=== PATIENT | female | born 1950 | race Two or more races ===

== ENCOUNTER 2017-02-19 05:50 | Inpatient (IN) | payer MEDICARE, MEDICAID ==
[2017-02-19 06:26] VITALS: BP 136/68
[2017-02-19 09:00] LABS: HEMATOCRIT 36.6 % (35.0-45.0); HEMOGLOBIN 12.3 gm/dL (11.7-16.1); MEAN CELL VOLUME 80.6 fl (81-100); MEAN CORPUSCULAR HEMOGLOBIN 27.1 pg (27.0-31.0); MEAN CORPUSCULAR HGB CONC 33.6 pg (28.0-36.0); MEAN PLATELET VOLUME 9.3 fl; PLATELET COUNT 261 Th/cmm (150-400); RED BLOOD COUNT 4.54 Mil/cmm (3.80-5.20); RED CELL DISTRIBUTION WIDTH 13.9 % (11.5-20.0); WHITE BLOOD COUNT 6.8 Th/cmm (4.8-10.8)
[2017-02-19] MEDS ORDERED: D5-0.9%NS 1,000 ML IV SCH (09:00)
[2017-02-19 09:25] LABS: ALKALINE PHOSPHATASE 68 U/L (34-104); ANION GAP 10.3 (7.0-16.0); BILIRUBIN,TOTAL 0.3 mg/dL (0.3-1.0); BUN - UREA NITROGEN 13 mg/dL (7-25); BUN/CREATININE RATIO 18.6; CALCIUM SERUM 8.7 mg/dL (8.6-10.3); CARBON DIOXIDE 22.9 mEq/L (21.0-31.0); CHLORIDE 106 mEq/L (98-107); CREATININE - SERUM 0.7 mg/dL (0.6-1.2); GLUCOSE 316 mg/dL (70-105); POTASSIUM SERUM 3.2 mEq/L (3.5-5.1); SGOT 14 U/L (13-39); SGPT/ALT 12 U/L (7-52); SODIUM SERUM 136 mEq/L (136-145)
[2017-02-19 09:34] LABS: BAND NEUTROPHILE 5 % (0-10); NEUTROPHILS 91 % (40-80); PLATELET ESTIMATE ADEQUATE (NORMAL); PLATELET MORPHOLOGY NORMAL (NORMAL); TOTAL CELLS COUNTED 100
[2017-02-19] MEDS ORDERED: Albuterol Nebulizer 2.5mg/3mL HHN ONE (10:02)
[2017-02-19] MEDS ORDERED: Ipratropium Neb 0.5 mg/2.5 mL UD HHN ONE (10:03)
[2017-02-19] MEDS: Albuterol Nebulizer 2.5mg/3mL HHN SCH ×3 (10:06→19:28)
[2017-02-19] MEDS: Ipratropium Neb 0.5 mg/2.5 mL UD HHN SCH ×3 (10:06→19:28)
--- NOTE | 2017-02-19 11:20 | Diagnostic Imaging Report ---
History: Chest pain Findings: Heart size is enlarged. No infiltrates or effusions. No destructive lesions of bone. Impression: Cardiomegaly.
[2017-02-19] MEDS: guaiFENesin 200 MG/10 ML UDC PO PRN (16:41)
[2017-02-19] MEDS ORDERED: Potassium Chloride 20 mEq ER Tab PO ONE (17:00)
--- NOTE | 2017-02-19 17:00 | Internal Medicine Prog Note ---
Internal Medicine Subjective - Subjective Service Date: 02/19/17 ([facility] [id number]) Internal Medicine Objective - Results Result Diagrams: 02/19/17 07:08 02/19/17 07:08 Recent Labs: Laboratory Last Values WBC 6.8 Th/cmm (4.8-10.8) 02/19/17 07:08 RBC 4.54 Mil/cmm (3.80-5.20) 02/19/17 07:08 Hgb 12.3 gm/dL (11.7-16.1) 02/19/17 07:08 Hct 36.6 % (35.0-45.0) 02/19/17 07:08 MCV 80.6 fl (81-100) L 02/19/17 07:08 MCH 27.1 pg (27.0-31.0) 02/19/17 07:08 MCHC Differential 33.6 pg (28.0-36.0) 02/19/17 07:08 RDW 13.9 % (11.5-20.0) 02/19/17 07:08 Plt Count 261 Th/cmm (150-400) 02/19/17 07:08 MPV 9.3 fl 02/19/17 07:08 Band Neutrophils % 5 % (0-10) 02/19/17 07:08 Neutrophils (Manual) 91 % (40-80) H 02/19/17 07:08 Lymphocytes 4 % (20-50) L 02/19/17 07:08 Platelet Estimate ADEQUATE (NORMAL) 02/19/17 07:08 Platelet Morphology NORMAL (NORMAL) 02/19/17 07:08 RBC Morph Micro Appear NORMAL (NORMAL) 02/19/17 07:08 Sodium 136 mEq/L (136-145) 02/19/17 07:08 Potassium 3.2 mEq/L (3.5-5.1) L 02/19/17 07:08 Chloride 106 mEq/L (98-107) 02/19/17 07:08 Carbon Dioxide 22.9 mEq/L (21.0-31.0) 02/19/17 07:08 Anion Gap 10.3 (7.0-16.0) 02/19/17 07:08 BUN 13 mg/dL (7-25) 02/19/17 07:08 Creatinine 0.7 mg/dL (0.6-1.2) 02/19/17 07:08 Est GFR ( Amer) > 60.0 ml/min (>90) 02/19/17 07:08 Est GFR (Non-Af Amer) > 60.0 ml/min 02/19/17 07:08 BUN/Creatinine Ratio 18.6 02/19/17 07:08 Glucose 316 mg/dL (70-105) H 02/19/17 07:08 Hemoglobin A1c % 6.7 % (4.0-6.0) H 02/19/17 07:08 Calcium 8.7 mg/dL (8.6-10.3) 02/19/17 07:08 Total Bilirubin 0.3 mg/dL (0.3-1.0) 02/19/17 07:08 AST 14 U/L (13-39) 02/19/17 07:08 ALT 12 U/L (7-52) 02/19/17 07:08 Alkaline Phosphatase 68 U/L (34-104) 02/19/17 07:08 B-Natriuretic Peptide 13.7 pg/mL (5.0-100.0) 02/19/17 07:08 Total Protein 7.7 gm/dL (6.0-8.3) 02/19/17 07:08 Albumin 3.8 gm/dL (3.7-5.3) 02/19/17 07:08 Globulin 3.9 gm/dL 02/19/17 07:08 Albumin/Globulin Ratio 1.0 (1.0-1.8) 02/19/17 07:08 TSH 0.47 uIU/ml (0.34-5.60) 02/19/17 07:08 - Physical Exam Vitals and I&O: Vital Signs Temp 98.4 F 02/19/17 16:00 Pulse 102 02/19/17 16:00 Resp 18 02/19/17 16:00 BP 144/87 02/19/17 16:00 Pulse Ox 95 02/19/17 16:00 Intake & Output 02/18/17 02/19/17 02/19/17 18:59 06:59 18:59 Weight (lbs) 240 lb Other: Stool Characteristics Formed Active Medications: Current Medications Acetaminophen (Tylenol) 650 mg PO Q4H PRN PRN Reason: Pain or Fever >101 Stop: 04/20/17 08:49 Last Admin: 02/19/17 16:40 Dose: 650 mg Albuterol Sulfate (Albuterol 2.5mg/3ml Neb Ud) 2.5 mg HHN QIDRT [facility] Stop: 04/20/17 10:59 Last Admin: 02/19/17 14:09 Dose: 2.5 mg Guaifenesin (Robitussin) 200 mg PO Q4H PRN PRN Reason: Cough or Congestion Stop: 04/20/17 08:49 Last Admin: 02/19/17 16:41 Dose: 200 mg Heparin Sodium (Porcine) (Heparin) 5,000 units SUBQ Q12HR [facility] Stop: 04/20/17 08:59 Last Admin: 02/19/17 10:08 Dose: Not Given Cefepime HCl 1 gm/ Dextrose 50 mls @ 100 mls/hr IV Q12HR [facility] Stop: 04/20/17 08:59 Last Admin: 02/19/17 10:06 Dose: 100 mls/hr Dextrose/Sodium Chloride (D5-0.9%Ns) 1,000 mls @ 75 mls/hr IV .[id number] [facility] Stop: 04/20/17 08:59 Last Admin: 02/19/17 10:07 Dose: 75 mls/hr Ipratropium [place] (Atrovent Neb 0.5mg/2.5ml) 0.5 mg N QIDRT [facility] Stop: 04/20/17 10:59 Last Admin: 02/19/17 14:10 Dose: 0.5 mg Lorazepam (Ativan) 0.5 mg PO Q6HR PRN; Protocol PRN Reason: Anxiety Stop: 04/20/17 16:51 Methylprednisolone Sodium Succinate (Solu-Medrol) 80 mg IVP Q8HR [facility] Stop: 04/20/17 12:59 Last Admin: 02/19/17 14:04 Dose: 80 mg Ondansetron HCl (Zofran) 4 mg IV Q8H PRN PRN Reason: Nausea / Vomiting Stop: 04/20/17 08:49 Zolpidem Tartrate (Ambien) 10 mg PO HS PRN PRN Reason: Insomnia Stop: 04/20/17 20:59 Internal Medicine Assmt/Plan - Assessment Assessment: Acute asthma Respiratory Exacerbation ACUTE BRONCHITIS HYPOKALEMIA HTN DM-2 ANXIETY
--- NOTE | 2017-02-19 19:23 | History & Physical ---
CHIEF COMPLAINT: Shortness of breath. HISTORY OF PRESENT ILLNESS: This is a 66-year-old female who has a 1-week history of shortness of breath associated with productive cough. The patient denies any fevers or any chills. The patient is a direct admission from [facility]. For continuation of care the patient is now here at [facility]. PAST MEDICAL HISTORY: Hypertension, type 2 diabetes and anxiety. PAST SURGICAL HISTORY: Cholecystectomy in 1988 and total hysterectomy in 1994. ALLERGIES: No known drug allergies. FAMILY HISTORY: Noncontributory. SOCIAL HISTORY: Denies any smoking, drinking or any illicit drug usage. REVIEW OF SYSTEMS: GENERAL: Denies any fevers, any chills. CARDIOVASCULAR: Denies any chest pain. RESPIRATORY: Denies any shortness of breath, but has a productive cough with a thick whitish phlegm. GASTROINTESTINAL: Denies any nausea, vomiting or abdominal pain. GENITOURINARY: Denies any dysuria. All other systems are reviewed by me and are negative. PHYSICAL EXAMINATION: GENERAL: The patient is awake and alert in no apparent distress. VITAL SIGNS: Temperature 98.4, heart rate 102, blood pressure 144/87, respirations 18 and O2 of 95%. HEENT: Head: Normocephalic and atraumatic. NECK: Supple. No mass. LUNGS: Rhonchi bilaterally. HEART: Regular rhythm. ABDOMEN: Soft, nontender and nondistended. LABORATORY RESULTS: WBC 6.8, H and H 12.3 and 36.6 and platelets of 261. Sodium 136, potassium 3.2, chloride 106, BUN 13 and creatinine 0.7. DIAGNOSTICS: The patient had a chest x-ray done and the impression is no active cardiopulmonary disease. ASSESSMENT: 1. Acute asthma exacerbation. 2. Acute bronchitis. 3. Hypokalemia. 4. Hypertension. 5. Type 2 diabetes. 6. Obesity. 7. Anxiety. PLAN: The patient to be admitted to the med/surg unit. The patient will be kept on albuterol and Atrovent for breathing treatments, also Solu-Medrol 80 mg IV push q. 8 hours. The patient will be kept on IV fluids for hydration. We will replace the patient's potassium level. We will monitor the patient's electrolyte levels. The patient will be kept on IV antibiotics of Maxipime 1 gram IV q. 12 hours. We will continue to monitor the patient. JOB# [id number]
--- NOTE | 2017-02-19 22:18 | Admit Criteria Form ---
Admit Criteria Forms - Admit Criteria Diagnosis: ASTHMA Clinical Indications for Admission to Inpatient Care (Place 'X' for any and all applicable criteria): Admission is indicated for ANY ONE of the following (1)(2)(3)(4)(5): [ ]I. Absent or markedly diminished breath sounds (silent chest) [ ]II. Oxygen saturation < 92% [ ]III. PaCO2 = / > 42 mm Hg (5.6 kPa) [ ]IV. Peak expiratory flow rate < 40% of predicted or personal best after treatment. [ ]V. Peak expiratory flow rate < 33% of predicted or personal before after treatment [ ]. Change in mental status [ ]VII. Ventilatory support required [ ]VIII. PaO2 < 60 mm Hg (8.0 kPa) [ ]IX. Cyanosis [ ]X. Cardiac dysrhythmia (e.g., bradycardia) [ ]XI. Hemodynamic instability [ ]XII. Radiographic evidence of complication requiring inpatient treatment (e.g., pneumonia, pneumothorax) [X]XIII. Inpatient admission required rather than observation care (also use Asthma: Observation Care guideline as appropriate) because of ANY ONE of the following: [X]a) Respiratory finding that is severe or persistent (eg, dyspnea, tachypnea, accessory muscle use) [ ]b) Airflow measurements less than 60% of predicted or personal best that persist (e.g., over 24 hours) or worsen despite treatments [ ]c) Supplemental oxygen or respiratory treatments for over 24 hours that are performable only in acute inpatient setting [ ]d) Other condition, treatment or monitoring requiring inpatient admission. Extended stay beyond goal length of stay may be needed for (26)(27)(28): [ ]a) Severe respiratory failure (23) (29) (30) [ ]b) Secondary causes and complications (25) [ ]c) Status asthmaticus [ ]d) Chronic obstructive asthma [ ]e) Older patients (29) [ ]f) Slow resolution [ ]g) Clinically significant exacerbation of comorbidities (eg, radha. heart failure, atrial fibrillation) The original [email or web address] content created by [email or web address] [email or web address] [employer] has been revised. The portions of the content which have been revised are identified through the use of italic text or in bold, and [facility] has neither reviewed nor approved the modified material. All other unmodified content is copyright [facility] Please see references footnoted in the original [facility] edition 2016 Admit Criteria Met?: Yes
[2017-02-19] MEDS: INSULIN ASPART SLIDING SCALE 100 UNITS/ML UNIT SUBQ SCH (23:21)
[2017-02-20] MEDS: INSULIN ASPART SLIDING SCALE 100 UNITS/ML UNIT SUBQ SCH ×4 (06:57→20:56)
[2017-02-20] MEDS: Albuterol Nebulizer 2.5mg/3mL HHN SCH ×4 (07:06→18:56)
[2017-02-20] MEDS: Ipratropium Neb 0.5 mg/2.5 mL UD HHN SCH ×4 (07:07→18:56)
--- NOTE | 2017-02-20 08:13 | Diagnostic Imaging Report ---
Portable chest x-ray HISTORY: Cough The heart appears enlarged. Atherosclerotic calcification seen in the aortic arch. No acute focal pulmonary processes. IMPRESSION: 1. Cardiomegaly with atherosclerotic vascular changes 2. No acute focal pulmonary processes
--- NOTE | 2017-02-20 12:34 | Internal Medicine Prog Note ---
Internal Medicine Subjective - Subjective Service Date: 02/20/17 (awake, alert, anxious to go home, patient still noted with chest tightness, patient is very anxious ) Patient seen and examined:: with staff Patient is:: awake Internal Medicine Objective - Results Result Diagrams: 02/19/17 07:08 02/19/17 07:08 Recent Labs: Laboratory Last Values WBC 6.8 Th/cmm (4.8-10.8) 02/19/17 07:08 RBC 4.54 Mil/cmm (3.80-5.20) 02/19/17 07:08 Hgb 12.3 gm/dL (11.7-16.1) 02/19/17 07:08 Hct 36.6 % (35.0-45.0) 02/19/17 07:08 MCV 80.6 fl (81-100) L 02/19/17 07:08 MCH 27.1 pg (27.0-31.0) 02/19/17 07:08 MCHC Differential 33.6 pg (28.0-36.0) 02/19/17 07:08 RDW 13.9 % (11.5-20.0) 02/19/17 07:08 Plt Count 261 Th/cmm (150-400) 02/19/17 07:08 MPV 9.3 fl 02/19/17 07:08 Band Neutrophils % 5 % (0-10) 02/19/17 07:08 Neutrophils (Manual) 91 % (40-80) H 02/19/17 07:08 Lymphocytes 4 % (20-50) L 02/19/17 07:08 Platelet Estimate ADEQUATE (NORMAL) 02/19/17 07:08 Platelet Morphology NORMAL (NORMAL) 02/19/17 07:08 RBC Morph Micro Appear NORMAL (NORMAL) 02/19/17 07:08 Sodium 136 mEq/L (136-145) 02/19/17 07:08 Potassium 3.2 mEq/L (3.5-5.1) L 02/19/17 07:08 Chloride 106 mEq/L (98-107) 02/19/17 07:08 Carbon Dioxide 22.9 mEq/L (21.0-31.0) 02/19/17 07:08 Anion Gap 10.3 (7.0-16.0) 02/19/17 07:08 BUN 13 mg/dL (7-25) 02/19/17 07:08 Creatinine 0.7 mg/dL (0.6-1.2) 02/19/17 07:08 Est GFR ( Amer) > 60.0 ml/min (>90) 02/19/17 07:08 Est GFR (Non-Af Amer) > 60.0 ml/min 02/19/17 07:08 BUN/Creatinine Ratio 18.6 02/19/17 07:08 Glucose 316 mg/dL (70-105) H 02/19/17 07:08 POC Glucose 265 MG/DL (70 - 105) H 02/20/17 11:29 Hemoglobin A1c % 6.7 % (4.0-6.0) H 02/19/17 07:08 Calcium 8.7 mg/dL (8.6-10.3) 02/19/17 07:08 Total Bilirubin 0.3 mg/dL (0.3-1.0) 02/19/17 07:08 AST 14 U/L (13-39) 02/19/17 07:08 ALT 12 U/L (7-52) 02/19/17 07:08 Alkaline Phosphatase 68 U/L (34-104) 02/19/17 07:08 B-Natriuretic Peptide 13.7 pg/mL (5.0-100.0) 02/19/17 07:08 Total Protein 7.7 gm/dL (6.0-8.3) 02/19/17 07:08 Albumin 3.8 gm/dL (3.7-5.3) 02/19/17 07:08 Globulin 3.9 gm/dL 02/19/17 07:08 Albumin/Globulin Ratio 1.0 (1.0-1.8) 02/19/17 07:08 TSH 0.47 uIU/ml (0.34-5.60) 02/19/17 07:08 - Physical Exam Vitals and I&O: Vital Signs Temp 97.9 F 02/20/17 08:00 Pulse 90 02/20/17 10:45 Resp 18 02/20/17 10:45 BP 145/72 02/20/17 08:00 Pulse Ox 95 02/20/17 10:45 Intake & Output 02/19/17 02/20/17 02/20/17 18:59 06:59 18:59 Intake Total 400 50 Balance 400 50 Intake: Intake, IV Amount 50 50 Cefepime 1 gm In Dextrose 50 50 5% 50 ml @ 100 mls/hr IV Q12HR [facility] Rx#:[id number] Oral 350 Other: # Voids 2 2 Stool Characteristics Formed Active Medications: Current Medications Acetaminophen (Tylenol) 650 mg PO Q4H PRN PRN Reason: Pain or Fever >101 Stop: 04/20/17 08:49 Last Admin: 02/19/17 16:40 Dose: 650 mg Albuterol Sulfate (Albuterol 2.5mg/3ml Neb Ud) 2.5 mg HHN QIDRT [facility] Stop: 04/20/17 10:59 Last Admin: 02/20/17 10:45 Dose: 2.5 mg Guaifenesin (Robitussin) 200 mg PO Q4H PRN PRN Reason: Cough or Congestion Stop: 04/20/17 08:49 Last Admin: 02/19/17 16:41 Dose: 200 mg Heparin Sodium (Porcine) (Heparin) 5,000 units SUBQ Q12HR [facility] Stop: 04/20/17 08:59 Last Admin: 02/20/17 09:11 Dose: Not Given Cefepime HCl 1 gm/ Dextrose 50 mls @ 100 mls/hr IV Q12HR [facility] Stop: 04/20/17 08:59 Last Admin: 02/20/17 09:11 Dose: 100 mls/hr Dextrose/Sodium Chloride (D5-0.9%Ns) 1,000 mls @ 75 mls/hr IV .[id number] [facility] Stop: 04/20/17 08:59 Last Admin: 02/19/17 10:07 Dose: 75 mls/hr Insulin Aspart (Novolog Insulin Sliding Scale) 0 units SUBQ ACHS [facility] PRN Reason: Protocol Stop: 04/20/17 20:59 Last Admin: 02/20/17 11:38 Dose: 7 units Ipratropium [place] (Atrovent Neb 0.5mg/2.5ml) 0.5 mg HHN QIDRT [facility] Stop: 04/20/17 10:59 Last Admin: 02/20/17 10:44 Dose: 0.5 mg Lorazepam (Ativan) 0.5 mg PO Q6H PRN; Protocol PRN Reason: Anxiety Stop: 04/20/17 16:51 Methylprednisolone Sodium Succinate (Solu-Medrol) 80 mg IVP Q8HR [facility] Stop: 04/20/17 12:59 Last Admin: 02/20/17 04:01 Dose: 80 mg Ondansetron HCl (Zofran) 4 mg IV Q8H PRN PRN Reason: Nausea / Vomiting Stop: 04/20/17 08:49 Zolpidem Tartrate (Ambien) 10 mg PO HS PRN PRN Reason: Insomnia Stop: 04/20/17 20:59 General: alert HEENT: NC/AT Neck: Supple Lungs: wheezing, ronchi Cardiovascular: RRR, Normal S1, Normal S2, without murmur Abdomen: soft non-tender, non-distended, positive bowel sound Internal Medicine Assmt/Plan - Assessment Assessment: Acute asthma Respiratory Exacerbation ACUTE BRONCHITIS HYPOKALEMIA HTN DM-2 ANXIETY - Plan Plan: continue with inhalation treatments iv solumedrol supplemental oxygen
[2017-02-20] MEDS: Potassium Chloride 40 MEQ in Sodium Chloride 0.45% 1,000 ML IV SCH (13:52)
[2017-02-21] MEDS: Potassium Chloride 40 MEQ in Sodium Chloride 0.45% 1,000 ML IV SCH (03:37)
[2017-02-21 06:07] LABS: FOLIC ACID >20.0 ng/mL (>3.0)
[2017-02-21 06:16] LABS: ANION GAP 7.2 (7.0-16.0); BUN - UREA NITROGEN 22 mg/dL (7-25); BUN/CREATININE RATIO 31.4; CALCIUM SERUM 9.2 mg/dL (8.6-10.3); CARBON DIOXIDE 26.6 mEq/L (21.0-31.0); CHLORIDE 105 mEq/L (98-107); CREATININE - SERUM 0.7 mg/dL (0.6-1.2); GLUCOSE 211 mg/dL (70-105); POTASSIUM SERUM 4.8 mEq/L (3.5-5.1); SODIUM SERUM 134 mEq/L (136-145)
[2017-02-21] MEDS: INSULIN ASPART SLIDING SCALE 100 UNITS/ML UNIT SUBQ SCH ×2 (06:47→11:49)
[2017-02-21 07:15] LABS: HEMATOCRIT 35.9 % (35.0-45.0); HEMOGLOBIN 12.2 gm/dL (11.7-16.1); MEAN CELL VOLUME 79.9 fl (81-100); MEAN CORPUSCULAR HEMOGLOBIN 27.2 pg (27.0-31.0); MEAN PLATELET VOLUME 9.3 fl; PLATELET COUNT 296 Th/cmm (150-400); RED BLOOD COUNT 4.49 Mil/cmm (3.80-5.20); RED CELL DISTRIBUTION WIDTH 13.3 % (11.5-20.0)
[2017-02-21] MEDS: Albuterol Nebulizer 2.5mg/3mL HHN SCH ×2 (07:57→11:21)
[2017-02-21] MEDS: Ipratropium Neb 0.5 mg/2.5 mL UD HHN SCH ×2 (07:57→11:21)
[2017-02-21 08:07] LABS: WHITE BLOOD COUNT 14.5 Th/cmm (4.8-10.8)
[2017-02-21] MEDS: guaiFENesin 200 MG/10 ML UDC PO PRN (09:19)
[2017-02-21 09:46] LABS: BAND NEUTROPHILE 8 % (0-10); MICROCYTOSIS 1+; NEUTROPHILS 87 % (40-80); PLATELET ESTIMATE ADEQUATE (NORMAL); PLATELET MORPHOLOGY NORMAL (NORMAL); TOTAL CELLS COUNTED 100
--- NOTE | 2017-02-21 23:46 | Discharge Summary ---
CHIEF COMPLAINT: Shortness of breath. FINAL DIAGNOSES: Acute asthma exacerbation, acute bronchitis, electrolyte abnormalities, leukocytosis, hypertension, diabetes, obesity, and psych disorder. HISTORY OF PRESENT ILLNESS: This is a 66-year-old female with a history of diabetes, asthma, presented to outside ER with increasing shortness of breath. The patient was diagnosed with asthma exacerbation, unable to be discharged secondary to worsening wheezing. The patient admitted for further management. PHYSICAL EXAMINATION: VITAL SIGNS: Blood pressure 146/87, respirations 20, pulse 64, temperature 97.7. NECK: Supple. No mass. LUNGS: Equal breath sounds, a few rhonchi. HEART: Regular rate and rhythm without appreciable murmurs. ABDOMEN: Soft, nontender. EXTREMITIES: Positive excoriations. NEUROLOGIC: Limited. HOSPITAL COURSE: The patient was admitted to medical floor, continued on oxygen, ____ treatment, IV steroids, and IV antibiotic. The patient's condition was slow to respond and the patient felt better ____ for discharge. CONDITION ON DISCHARGE: Fair. DISCHARGE INSTRUCTIONS: The patient is to continue the current medical regimen. The patient is to be discharged with antibiotics and steroids. The patient is to follow up with her regular physician. JOB# [id number]
== END 2017-02-21 18:04 | DRG 202 ==
LOC: MSI 05:50
PROVIDERS: ADMIT Internal Medicine; ATTEND Internal Medicine
DX: J45.901 Unspecified asthma with (acute) exacerbation (principal); R65.10 Systemic inflammatory response syndrome (SIRS) of non-infectious origin without acute organ dysfunction; J20.9 Acute bronchitis, unspecified; E11.9 Type 2 diabetes mellitus without complications; I10 Essential (primary) hypertension; E87.6 Hypokalemia; E66.9 Obesity, unspecified; F29 Unspecified psychosis not due to a substance or known physiological condition; F41.9 Anxiety disorder, unspecified; Z90.49 Acquired absence of other specified parts of digestive tract; Z90.710 Acquired absence of both cervix and uterus; Z68.38 Body mass index [BMI] 38.0-38.9, adult
CPT/HCPCS: 36415-UA; 71010-TC; 80048-TC; 80053-TC; 82607-90; 82746-90; 82948-90; 83036-90; 83880-TC; 84443-TC; 85007-TC; 85027-TC; 90779; 94760; J0692; J1644; J1815; J2930; J3480; J7042; J7613; Z7610